=== PATIENT | male | born 1975 | race Caucasian/White ===

== ENCOUNTER 2017-05-15 02:22 | Emergency (ER) | payer BC ==
[2017-05-15] MEDS ORDERED: DIPHTH,PERTUSS(ACELL),TET VAC 0.5 ML VIAL IM ONE ×2 (02:52→02:54)
[2017-05-15] MEDS ORDERED: AMOX TR/POTASSIUM CLAVULANATE 875 MG TABLET PO ONE (02:52)
[2017-05-15] MEDS ORDERED: AMOX TR/POTASSIUM CLAVULANATE 875 MG TABLET ONE (02:54)
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
[2017-05-15 03:36] VITALS: BP 130/86
== END 2017-05-15 03:10 | disposition home or self-care (01) ==
LOC: ER 02:22
DX: S61.411A Laceration without foreign body of right hand, initial encounter (principal); Y04.1XXA Assault by human bite, initial encounter; Y93.89 Activity, other specified; Y92.89 Other specified places as the place of occurrence of the external cause; Z23 Encounter for immunization; Z53.29 Procedure and treatment not carried out because of patient's decision for other reasons